=== PATIENT | male | born 1960 | race Caucasian/White ===

== ENCOUNTER 2018-10-03 12:04 | Inpatient (IN) | payer OTHER ==
[~2018-10-03] VITALS: Ht 172.7 cm; Wt 86.2 kg
[~2018-10-03 12:04] MED LIST: AZITHROMYCIN250 MG; FLECAINIDE ACET50 MG; TOPROL XL25 M1
[2018-10-27] MEDS ORDERED: FLECAINIDE ACET50 MG PO (17:38)
[2018-10-27] MEDS ORDERED: FERROUS SULFAT325 M1 PO (17:38)
[2018-10-27] MEDS ORDERED: TOPROL XL25 M1 PO (17:38)
[2018-10-27] MEDS ORDERED: KAOPECTATE240 MG PO (17:38)
== END 2018-10-27 18:21 | disposition home or self-care (01) | DRG 871 ==
LOC: ER 12:04 → SURH 10-04 13:03 → MEDJ 10-21 14:05
PROVIDERS: ADMIT Internal Medicine
PROC: 4A033R1 Measurement of Arterial Saturation, Peripheral, Percutaneous Approach (ICD-10-PCS; 2018-10-04)
PROC: 3E0F7GC Introduction of Other Therapeutic Substance into Respiratory Tract, Via Natural or Artificial Opening (ICD-10-PCS; 2018-10-04)
PROC: B246ZZZ Ultrasonography of Right and Left Heart (ICD-10-PCS; 2018-10-06)
PROC: BB24Y0Z Computerized Tomography (CT Scan) of Bilateral Lungs using Other Contrast, Unenhanced and Enhanced (ICD-10-PCS; 2018-10-08)
PROC: 0J9 Subcutaneous Tissue and Fascia, Drainage (ICD-10-PCS; principal; 2018-10-10)
PROC: 02HV33Z Insertion of Infusion Device into Superior Vena Cava, Percutaneous Approach (ICD-10-PCS; 2018-10-18)
DX: A41.01 Sepsis due to Methicillin susceptible Staphylococcus aureus (principal); J18.1 Lobar pneumonia, unspecified organism; J98.51 Mediastinitis; J80 Acute respiratory distress syndrome; J98.11 Atelectasis; L02.11 Cutaneous abscess of neck; I48.2 Chronic atrial fibrillation; I08.1 Rheumatic disorders of both mitral and tricuspid valves; B95.61 Methicillin susceptible Staphylococcus aureus infection as the cause of diseases classified elsewhere; D72.828 Other elevated white blood cell count; R22.1 Localized swelling, mass and lump, neck; S43.084A Other dislocation of right shoulder joint, initial encounter; M54.2 Cervicalgia; M79.18 Myalgia, other site; D63.8 Anemia in other chronic diseases classified elsewhere; Z79.01 Long term (current) use of anticoagulants; Z53.1 Procedure and treatment not carried out because of patient's decision for reasons of belief and group pressure; F43.22 Adjustment disorder with anxiety

== ENCOUNTER 2019-08-06 11:44 | Outpatient (CLI) | payer OTHER ==
[~2019-08-06 11:44] MED LIST changes: +FERROUS SULFAT325 M1 PO; +FLECAINIDE ACET50 MG PO; +KAOPECTATE240 MG PO; +TOPROL XL25 M1 PO
== END 2019-08-06 11:52 | disposition home or self-care (01) ==
LOC: RAD 11:44
PROVIDERS: ATTEND Internal Medicine Pulmonary Disease
DX: R05 Cough (principal); R06.02 Shortness of breath

== ENCOUNTER 2021-10-02 11:15 | Emergency (ER) | payer OTHER ==
[~2021-10-02] VITALS: Ht 177.8 cm; Wt 83.9 kg
[2021-10-02] MEDS ORDERED: MELOXICAM7.5 MG PO (12:00)
[2021-10-02] MEDS ORDERED: PERCOCET 5-3251 EACH PO (16:02)
== END 2021-10-02 16:34 | disposition home or self-care (01) ==
LOC: ER 11:15
DX: M77.8 Other enthesopathies, not elsewhere classified (principal)